=== PATIENT | female | born 1945 | race Caucasian/White ===

== ENCOUNTER 2016-08-12 23:52 | Inpatient (IN) | payer MEDICARE, BC ==
[~2016-08-12] VITALS: Ht 160 cm; Wt 58.3 kg
--- NOTE | 2016-08-13 00:07 | NUR ---
PATIENT BROUGHT IN BY RESCUE FOR C/O WEAKNESS X2 MONTHS AND DIZZNES X1 TODAY, SYNCOPE, PT IS ALERT, ORIENTED X 4, NO RESP DISTRESS NOTED OR REPORTED UPON ASSESSMENT... PT HAS PACEMAKER ON LEFT SIDE OF CHEST, PT HR CURRENTLY BETWEEN 35-45, MD AT BEDSIDE...
[2016-08-13 00:26] LABS: BASOPHILS % (AUTO) 0.6 % (0.0-2.0); EOSINOPHILS # (AUTO) 0.2 K/uL (0.0-0.7); EOSINOPHILS % (AUTO) 3.4 % (0.0-7.0); HEMATOCRIT 39.5 % (37-47); HEMOGLOBIN 13.4 G/DL (12.0-16.0); LYMPHOCYTES # (AUTO) 1.9 K/UL (0.8-4.8); MEAN CORPUSCULAR HEMOGLOBIN 30.6 UUG (27.0-31.0); MEAN CORPUSCULAR HGB CONC 34 g/dL (32.0-37.0); MEAN CORPUSCULAR VOLUME 90.7 FL (81.0-99.0); MONOCYTES % (AUTO) 16.2 % (0.0-11.0); NEUTROPHILS # (AUTO) 3.2 K/UL (1.8-8.9); NEUTROPHILS % (AUTO) 49.8 % (38.5-71.5); PLATELET COUNT (AUTO) 210 K/UL (150-450); RED BLOOD CELL COUNT(AUTO) 4.36 MIL/UL (4.2-5.4); WHITE BLOOD COUNT (AUTO) 6.3 K/UL (4.0-11.2)
[2016-08-13] MEDS ORDERED: LEVO100T PO (00:29)
[2016-08-13] MEDS ORDERED: METO50TA3 PO (00:29)
[2016-08-13] MEDS ORDERED: BENA40TA67 PO (00:29)
[2016-08-13] MEDS ORDERED: AMLO5TAB2 PO (00:29)
[2016-08-13] MEDS ORDERED: TRAV5DRO OP (00:29)
[2016-08-13] MEDS ORDERED: ROSU5TAB PO (00:29)
[2016-08-13] MEDS ORDERED: ASPI81TA31 PO (00:29)
[2016-08-13] MEDS ORDERED: HYDR12.55 PO (00:29)
[2016-08-13] MEDS ORDERED: DORZ10DR8 OP (00:29)
[2016-08-13 00:35] LABS: CARBON DIOXIDE 29 mmol/L (21-32); CHLORIDE 97 mmol/L (98-107); CREATININE 0.9 mg/dL (0.6-1.3); GLUCOSE 119 mg/dL (74-106); POTASSIUM 3.9 mmol/L (3.5-5.1); UREA NITROGEN, BLOOD 19 mg/dL (7-18)
[2016-08-13 00:39] LABS: EOSINOPHILS % (MANUAL) 4 % (0-8); LYMPHOCYTES % (MANUAL) 25 % (20-40); MONOCYTES % (MANUAL) 16 % (2-10); NEUTROPHILS % (MANUAL) 55 % (42-75)
[2016-08-13 00:46] LABS: ALANINE AMINOTRANSFERASE 32 U/L (14-59); ALKALINE PHOSPHATASE 120 U/L (50-136); ASPARTATE AMINOTRANSFERASE 37 U/L (15-37); BILIRUBIN,DIRECT 0.2 mg/dL (0.0-0.2); BILIRUBIN,TOTAL 0.6 mg/dL (0.2-1.0); TOTAL PROTEIN, SERUM 7.6 g/dL (6.4-8.2)
--- NOTE | 2016-08-13 01:15 | NUR ---
Call placed to [facility] speaking with Dr. Sutton.
[2016-08-13] MEDS ORDERED: MAGNESIUM HYDROXIDE 30 ML LIQUID UDC PO PRN (01:30)
[2016-08-13] MEDS ORDERED: HYDROCODONE/APAP 5-325MG TABLET PO PRN (01:30)
[2016-08-13] MEDS ORDERED: ONDANSETRON 4 MG/2 ML VIAL IV PRN (01:30)
[2016-08-13] MEDS ORDERED: Z GUARD REMEDY PASTE 57 GM TUBE TOP PRN (01:30)
--- NOTE | 2016-08-13 02:10 | NUR ---
ADMITTED THIS 70 Y.O. LADY WITH HISTORY OF 3X PACEMAKER INSERTION SINCE 2000.SHE IS HERE FORVALUATION AND FF UP OF PACEMAKER FAILURE.ACCOMPANIED BY ER NURSE VIA DONATO IN APPARENTLY FAIR CONDITION,ALERT AND ORIENTED X4, NO COMPLAINTS OF CHEST PAIN, DIZZINESS OR NAUSEA.ON TELEMETRY ,SHE IS PACING 63-64.VITALS TAKEN AND RECORDED.ADMISSION CARE RENDERED.DR. ENRIQUETA VALLECILLO NOTIFIED AND CLARIFIED ADMISSION ORDERS.HE WILL ARRANGED IN THE MORNING TO UNDERGO INTERROGATIONOF THE PACER BY THE [employer] REP ANDTHEN TO CONTACT HER COMMUNITY DEVELOPMENT WORKER TO CHECKHER PACERFOR APPROPRIATE TREATMENT. PT INFORMED RE;ABOVE.
--- NOTE | 2016-08-13 02:15 | NUR ---
E. PT PLACED ON TELE: PACING 60S, WITH EPISODE TO 3OS, PT ASYMPTOMATIC. MD ENRIQUETA VALLECILLO MADE AWARE, WITH CLARIFICATION OF ORDERS, SEE CHARGE NURSE NOTES. MADE COMFORTABLE. SAFETY NEEDS IMPLEMENTED. CALL LIGHT IN REACH. WILL CONTINUE CLOSE MONITORING.
[2016-08-13 02:25] VITALS: BP 134/66
--- NOTE | 2016-08-13 03:28 | NUR ---
Pt. admitted to Tele , under care of Dr. Sae Sutton, [place] List completed, pt alert, oriented x 4, no resp distress noted or reported upon assessment... pt transferred via gurney...
[2016-08-13 04:00] VITALS: BP 117/67
[2016-08-13 06:46] LABS: BASOPHILS % (AUTO) 0.5 % (0.0-2.0); EOSINOPHILS # (AUTO) 0.1 K/uL (0.0-0.7); EOSINOPHILS % (AUTO) 3.1 % (0.0-7.0); HEMATOCRIT 38.8 % (37-47); HEMOGLOBIN 13.3 G/DL (12.0-16.0); LYMPHOCYTES # (AUTO) 1.1 K/UL (0.8-4.8); LYMPHOCYTES % (AUTO) 24.5 % (20.5-51.5); MEAN CORPUSCULAR HEMOGLOBIN 31.8 UUG (27.0-31.0); MEAN CORPUSCULAR HGB CONC 34 g/dL (32.0-37.0); MEAN CORPUSCULAR VOLUME 92.5 FL (81.0-99.0); MONOCYTES # (AUTO) 0.6 K/UL (0.1-1.30); MONOCYTES % (AUTO) 14.1 % (0.0-11.0); NEUTROPHILS # (AUTO) 2.8 K/UL (1.8-8.9); NEUTROPHILS % (AUTO) 57.8 % (38.5-71.5); PLATELET COUNT (AUTO) 206 K/UL (150-450); WHITE BLOOD COUNT (AUTO) 4.6 K/UL (4.0-11.2)
--- NOTE | 2016-08-13 06:56 | NUR ---
END OF SHIFT NOTE: PT SLEPT INTERMITTENTLY REMAINDER OF SHIFT. NO ACUTE DISTRESS NOTED. ON TELE: PACING, HR-61. NO C/O PAIN OR DIZZINESS THIS MORNING. VS STABLE. BREATHING IS EVEN AND NONLABORED, ON ROOM AIR, SAT WNL. IV INTACT AND PATENT. DVT PUMPS ON. ALL NEEDS MET. CALL LIGHT IN REACH. SAFETY AND COMFORT MEASURES PROVIDED.
[2016-08-13 07:09] LABS: CARBON DIOXIDE 27 mmol/L (21-32); CHLORIDE 100 mmol/L (98-107); CREATININE 0.8 mg/dL (0.6-1.3); GLUCOSE 108 mg/dL (74-106); MAGNESIUM 1.9 mg/dL (1.8-2.4); PHOSPHOROUS 3.8 mg/dL (2.5-4.9); POTASSIUM 3.3 mmol/L (3.5-5.1); UREA NITROGEN, BLOOD 15 mg/dL (7-18)
--- NOTE | 2016-08-13 08:00 | NUR ---
IN BED AWAKE ALERT AND ORIENTED X3, CONTINUE CLOSE MONITORING PACED RYTHM NO SIGNS OF PAIN OR SOB
[2016-08-13] MEDS: PANTOPRAZOLE SODIUM 40 MG TABLET.DR PO SCH (08:17)
[2016-08-13] MEDS: AMLODIPINE 5 MG TABLET PO SCH (08:17)
[2016-08-13] MEDS: BENAZEPRIL HCL 20 MG TABLET PO SCH (08:18)
[2016-08-13] MEDS: HYDROCHLOROTHIAZIDE 12.5 MG CAPSULE PO SCH (08:18)
[2016-08-13] MEDS: LEVOTHYROXINE SODIUM 100 MCG TABLET PO SCH (08:18)
[2016-08-13] MEDS: ASPIRIN 81 MG TAB.CHEW PO SCH (08:18)
[2016-08-13] MEDS ORDERED: Medication Not On Formulary EA (Hydrochlorothiazide 12.5 MG) PO SCH (09:00)
[2016-08-13] MEDS ORDERED: POTASSIUM CHLORIDE 20 MEQ TAB.PRT.SR PO ONE (10:30)
--- NOTE | 2016-08-13 10:30 | NUR ---
SEEN BY DR TRUJILLO DISCUSSED PLAN OF CARE, SEE NOTES.
[2016-08-13] MEDS: DORZOLAMIDE 2% OPHT DROP 10 ML BOTTLE EACHEYE SCH ×2 (10:59→17:18)
[2016-08-13 12:12] VITALS: BP 119/62
--- NOTE | 2016-08-13 13:40 | NUR ---
LUKE PAIN OR SOB, RESTING COMFORTABLY IN BED PACING ON MONITOR
--- NOTE | 2016-08-13 13:45 | NUR ---
SEEN BY DR SCHROEDER SEE NOTES
--- NOTE | 2016-08-13 14:45 | NUR ---
PACEMAKER CHECKED DONE BY TECH. CONSENT SIGNED FOR PACEMAKER IN AM, NPO AFTER MIDNIGHT ADVICE
[2016-08-13 16:11] VITALS: BP 102/60
[2016-08-13 17:29] LABS: *BILIRUBIN,URIN NEGATIVE (NEGATIVE); *BLOOD, URINE 2+ (NEGATIVE); *COLOR,URINE YELLOW (YELLOW); *KETONES,URINE NEGATIVE (NEGATIVE); *PROTEIN,URINE NEGATIVE (NEGATIVE); *UROBILINOGEN,URINE 0.2 E.U./dl (NORMAL); LEUKOCYTE ESTERASE ,URINE NEGATIVE (NEGATIVE); NITRITE, URINE NEGATIVE (NEGATIVE); UGLUCOSE NEGATIVE (NEGATIVE)
[2016-08-13 17:47] LABS: *CLARITY,URINE SLIGHTLY HAZY (CLEAR)
[2016-08-13 17:48] LABS: RBC,URINE 20-50 /HPF (0-3); WBC,URINE 0-3 /HPF (0-3)
--- NOTE | 2016-08-13 18:43 | NUR ---
PACING ON MONITOR, LUKE PAIN OR SOB
--- NOTE | 2016-08-13 19:30 | NUR ---
RESTING IN BED COMFORTABLY. NO ACUTE DISTRESS NOTED. ALERT AND ORIENTED, ABLE TO MAKE NEEDS KNOWN. AWARE OF PROCEDURE TOMORROW. INSTRUCTED TO CALL WHEN IN NEED TO USE THE RESTROOM. SAFETY INITIATED. CALL LIGHT WITHIN REACH. WILL MONITOR
[2016-08-13 20:00] VITALS: BP 104/58
[2016-08-13] MEDS: ATORVASTATIN 10 MG TABLET PO SCH (20:15)
[2016-08-13] MEDS: LATANOPROST OPHT DROP 2.5 ML BOTTLE EACHEYE SCH (20:15)
[2016-08-13] MEDS ORDERED: Medication Not On Formulary EA (Rosuvastatin Calcium (Crestor) 5 MG) PO SCH (21:00)
[2016-08-13] MEDS ORDERED: Medication Not On Formulary EA (Travoprost (Travatan Z) 5 ML) OP SCH (21:00)
[2016-08-14] VITALS (9 sets, daily range): BP systolic 102–124; BP diastolic 52–69
--- NOTE | 2016-08-14 06:44 | NUR ---
PATIENT SLEPT COMFORTABLY THROUGHOUT THE NIGHT. NO ACUTE DISTRESS NOTED. NPO MAINTAINED. PRE OP CHECKLIST INITIATED. ALL MEDS GIVEN ORDERED. ALL NEEDS MET. CALL LIGHT WITHIN REACH. TELE A-PACING 63.
[2016-08-14] MEDS: PANTOPRAZOLE SODIUM 40 MG TABLET.DR PO SCH (06:49)
[2016-08-14] MEDS: LEVOTHYROXINE SODIUM 100 MCG TABLET PO SCH (06:49)
[2016-08-14] MEDS ORDERED: BACITRACIN 50000 UNIT MC ONE ×2 (07:30)
[2016-08-14] MEDS ORDERED: SODIUM CHLORIDE MC ONE ×2 (07:30)
[2016-08-14 07:51] LABS: ALANINE AMINOTRANSFERASE 31 U/L (14-59); ALKALINE PHOSPHATASE 105 U/L (50-136); ASPARTATE AMINOTRANSFERASE 28 U/L (15-37); BILIRUBIN,TOTAL 0.7 mg/dL (0.2-1.0); CARBON DIOXIDE 30 mmol/L (21-32); CHLORIDE 102 mmol/L (98-107); CHOLESTEROL 152 mg/dL (<200); CREATININE 0.8 mg/dL (0.6-1.3); GLUCOSE 92 mg/dL (74-106); HDL CHOLESTEROL 89 mg/dL (40-60); MAGNESIUM 1.8 mg/dL (1.8-2.4); PHOSPHOROUS 3.3 mg/dL (2.5-4.9); POTASSIUM 3.3 mmol/L (3.5-5.1); TOTAL PROTEIN, SERUM 6.9 g/dL (6.4-8.2); TRIGLYCERIDES 37 MG/DL (30-150); UREA NITROGEN, BLOOD 12 mg/dL (7-18)
[2016-08-14] MEDS ORDERED: LIDOCAINE HCL 1% 20 ML VIAL ONE (07:55)
[2016-08-14] MEDS ORDERED: NS ONE (07:55)
[2016-08-14] MEDS ORDERED: HEPARIN ONE (07:55)
[2016-08-14] MEDS ORDERED: IOHEXOL 300MG/ML 50 ML VIAL ONE (07:55)
--- NOTE | 2016-08-14 07:56 | NUR ---
Awake, alert, oriented x 4. NPO maintained. Getting ready for surgery, pacemaker insertion.
[2016-08-14] MEDS ORDERED: BACITRACIN 50,000 UNITS VIAL ONE (08:04)
--- NOTE | 2016-08-14 08:06 | NUR ---
To OR by bed, tele removed
[2016-08-14 08:07] LABS: THYROID STIMULATING HORMONE 0.443 mIU/mL (0.358-3.740)
[2016-08-14] MEDS ORDERED: MIDAZOLAM HCL 2 MG/2 ML VIAL IV ONE (08:26)
[2016-08-14 08:44] LABS: BASOPHILS % (AUTO) 0.1 % (0.0-2.0); EOSINOPHILS # (AUTO) 0.2 K/uL (0.0-0.7); EOSINOPHILS % (AUTO) 3.9 % (0.0-7.0); HEMATOCRIT 39.9 % (37-47); HEMOGLOBIN 13.3 G/DL (12.0-16.0); LYMPHOCYTES # (AUTO) 1.1 K/UL (0.8-4.8); LYMPHOCYTES % (AUTO) 21.8 % (20.5-51.5); MEAN CORPUSCULAR HEMOGLOBIN 30.8 UUG (27.0-31.0); MEAN CORPUSCULAR HGB CONC 33 g/dL (32.0-37.0); MEAN CORPUSCULAR VOLUME 92.2 FL (81.0-99.0); MONOCYTES # (AUTO) 0.8 K/UL (0.1-1.30); MONOCYTES % (AUTO) 16.7 % (0.0-11.0); NEUTROPHILS # (AUTO) 2.9 K/UL (1.8-8.9); NEUTROPHILS % (AUTO) 57.5 % (38.5-71.5); PLATELET COUNT (AUTO) 189 K/UL (150-450); RED BLOOD CELL COUNT(AUTO) 4.33 MIL/UL (4.2-5.4)
[2016-08-14] MEDS: BENAZEPRIL HCL 20 MG TABLET PO SCH (09:00)
[2016-08-14] MEDS: HYDROCHLOROTHIAZIDE 12.5 MG CAPSULE PO SCH (09:00)
[2016-08-14] MEDS: AMLODIPINE 5 MG TABLET PO SCH (09:00)
[2016-08-14] MEDS: DORZOLAMIDE 2% OPHT DROP 10 ML BOTTLE EACHEYE SCH ×2 (09:00→17:23)
[2016-08-14 09:15] LABS: LYMPHOCYTES % (MANUAL) 23 % (20-40); NEUTROPHILS % (MANUAL) 58 % (42-75)
[2016-08-14 09:16] LABS: EOSINOPHILS % (MANUAL) 4 % (0-8); MONOCYTES % (MANUAL) 15 % (2-10)
--- NOTE | 2016-08-14 11:40 | NUR ---
Received from Recovery s/p Pacemaker placement, right chest by bed. Awake, alert, oriented x4 . Vital signs taken and recorded. Placed on tele, afib/pacing 70
[2016-08-14] MEDS ORDERED: SEVOFLURANE 250 ML BOTTLE IH ONE (12:03)
[2016-08-14] MEDS ORDERED: IV NORMAL SALINE 1000 ML BAG IV ONE (12:03)
[2016-08-14] MEDS ORDERED: PROPOFOL 200 MG/20 ML BOTTLE IV ONE (12:03)
[2016-08-14] MEDS ORDERED: CEFAZOLIN 1 G VIAL MC ONE (12:03)
[2016-08-14] MEDS ORDERED: ONDANSETRON 4 MG/2 ML VIAL IV ONE (12:03)
[2016-08-14] MEDS ORDERED: DEXAMETHASONE SOD PHOSPHATE 4 MG INJ IV ONE (12:03)
[2016-08-14] MEDS ORDERED: IV NORMAL SALINE 500 ML BAG IV ONE (12:03)
[2016-08-14] MEDS: ASPIRIN 81 MG TAB.CHEW PO SCH (12:47)
[2016-08-14] MEDS: METOPROLOL TARTRATE 50 MG TABLET PO SCH ×2 (12:51→20:42)
[2016-08-14] MEDS: POTASSIUM CHLORIDE 50 ML IV SCH ×2 (12:51→15:41)
--- NOTE | 2016-08-14 13:00 | NUR ---
Lunch served. Medication resumed, BP medications not given for low BP except for metoprolol. IV Potassium started.
[2016-08-14] MEDS: ACETAMINOPHEN 325 MG TABLET PO PRN ×2 (13:04→23:34)
[2016-08-14] MEDS: CEFAZOLIN 1 G in PREMIXED 1 EACH IV SCH ×2 (15:11→21:12)
--- NOTE | 2016-08-14 15:41 | NUR ---
IV site burning from Potassium IV, 2nd bag infusing at slow rate, with IVF infusion
--- NOTE | 2016-08-14 17:44 | NUR ---
Kept comfortable, not in distress
--- NOTE | 2016-08-14 19:30 | NUR ---
RECEIVED REPORT FROM AM NURSE. PATIENT WAS IN BED SITTING COMFORTABLY. PATIENT IS ALERT AND ORIENTED X'S 4. ABLE TO MAKE NEEDS KNOWN. TELE A-PACING AT 70. NO ACUTE DISTRESS NOTED. SAFETY INITIATED. CALL LIGHT WITHIN REACH.
[2016-08-14] MEDS: LATANOPROST OPHT DROP 2.5 ML BOTTLE EACHEYE SCH (20:41)
[2016-08-14] MEDS: ATORVASTATIN 10 MG TABLET PO SCH (20:42)
[2016-08-15] VITALS: BP 104/58
[2016-08-15 04:00] VITALS: BP 108/56
[2016-08-15] MEDS: PANTOPRAZOLE SODIUM 40 MG TABLET.DR PO SCH (06:07)
[2016-08-15] MEDS: LEVOTHYROXINE SODIUM 100 MCG TABLET PO SCH (06:07)
--- NOTE | 2016-08-15 06:46 | NUR ---
PATIENT SLEPT INTERMITTENTLY THROUGHOUT THE NIGHT. NO ACUTE DISTRESS NOTED. TELE PACING AT 70. ALL MEDS GIVEN ORDERED. ALL NEEDS MET. CALL LIGHT WITHIN REACH. SAFETY PROVIDED THROUGHOUT SHIFT.
[2016-08-15] MEDS: DORZOLAMIDE 2% OPHT DROP 10 ML BOTTLE EACHEYE SCH ×2 (08:42→16:02)
[2016-08-15] MEDS: METOPROLOL TARTRATE 50 MG TABLET PO SCH ×2 (08:42→20:30)
[2016-08-15] MEDS: ASPIRIN 81 MG TAB.CHEW PO SCH (08:42)
[2016-08-15] MEDS: BENAZEPRIL HCL 20 MG TABLET PO SCH (08:43)
[2016-08-15] MEDS: AMLODIPINE 5 MG TABLET PO SCH (08:47)
[2016-08-15] MEDS: HYDROCHLOROTHIAZIDE 12.5 MG CAPSULE PO SCH (08:47)
[2016-08-15 12:07] VITALS: BP 120/66
[2016-08-15 14:00] LABS: BASOPHILS % (AUTO) 0.4 % (0.0-2.0); EOSINOPHILS # (AUTO) 0.1 K/uL (0.0-0.7); EOSINOPHILS % (AUTO) 0.8 % (0.0-7.0); HEMATOCRIT 38.6 % (37-47); HEMOGLOBIN 12.8 G/DL (12.0-16.0); LYMPHOCYTES % (AUTO) 8.6 % (20.5-51.5); MEAN CORPUSCULAR HEMOGLOBIN 30.9 UUG (27.0-31.0); MEAN CORPUSCULAR HGB CONC 33 g/dL (32.0-37.0); MEAN CORPUSCULAR VOLUME 93.1 FL (81.0-99.0); MONOCYTES # (AUTO) 1.1 K/UL (0.1-1.30); MONOCYTES % (AUTO) 9.1 % (0.0-11.0); NEUTROPHILS # (AUTO) 9.9 K/UL (1.8-8.9); NEUTROPHILS % (AUTO) 81.1 % (38.5-71.5); PLATELET COUNT (AUTO) 202 K/UL (150-450); RED BLOOD CELL COUNT(AUTO) 4.15 MIL/UL (4.2-5.4); WHITE BLOOD COUNT (AUTO) 12.1 K/UL (4.0-11.2)
--- NOTE | 2016-08-15 14:00 | NUR ---
The patient's discharge plan is to return back home [[address], [place] [address]] once medically cleared. She will follow-up with her PCP and legal billing coordinator. Provided her with a [facility] booklet in her folder and she opted for [facility] [ ; ] to provide services at home.
[2016-08-15 14:04] LABS: CARBON DIOXIDE 29 mmol/L (21-32); CHLORIDE 98 mmol/L (98-107); CREATININE 1.1 mg/dL (0.6-1.3); GLUCOSE 113 mg/dL (74-106); POTASSIUM 3.7 mmol/L (3.5-5.1); UREA NITROGEN, BLOOD 15 mg/dL (7-18)
[2016-08-15 14:10] LABS: ALANINE AMINOTRANSFERASE 22 U/L (14-59); ALKALINE PHOSPHATASE 107 U/L (50-136); ASPARTATE AMINOTRANSFERASE 29 U/L (15-37); BILIRUBIN,TOTAL 0.6 mg/dL (0.2-1.0); MAGNESIUM 1.8 mg/dL (1.8-2.4); TOTAL PROTEIN, SERUM 6.8 g/dL (6.4-8.2)
[2016-08-15] MEDS ORDERED: CEFTRIAXONE 1 G in IV DEXTROSE 5% 50 ML IV SCH (15:00)
[2016-08-15 15:02] LABS: BAND % (MANUAL) 2 % (0-10); LYMPHOCYTES % (MANUAL) 12 % (20-40); MONOCYTES % (MANUAL) 10 % (2-10); NEUTROPHILS % (MANUAL) 76 % (42-75)
[2016-08-15 16:00] VITALS: BP 108/67
--- NOTE | 2016-08-15 19:33 | NUR ---
PT IS LAYING IN BED COMFORTABLY. NO PAIN NOTED. NO S/S OF RESPIRATORY DISTRESS NOTED. IV INTACT/PATENT. ALL SAFETY NEEDS ARE MET.
[2016-08-15 20:00] VITALS: BP 115/69
--- NOTE | 2016-08-15 20:00 | NUR ---
RECEIVED PATIENT AWAKE IN BED. A/O X4. DENIES PAIN OR DISCOMFORT. REDNESS NOTED TO RIGHT UPPER CHEST AROUND PACEMAKER SITE. VSS. CALL LIGHT IN REACH. ALL NEEDS ATTENDED. WILL CONTINUE TO MONITOR.
[2016-08-15] MEDS: ATORVASTATIN 10 MG TABLET PO SCH (20:30)
[2016-08-15] MEDS: LATANOPROST OPHT DROP 2.5 ML BOTTLE EACHEYE SCH (20:30)
[2016-08-15] MEDS: ACETAMINOPHEN 325 MG TABLET PO PRN (21:22)
[2016-08-16 05:31] VITALS: BP 132/74
[2016-08-16] MEDS: PANTOPRAZOLE SODIUM 40 MG TABLET.DR PO SCH (06:21)
[2016-08-16] MEDS: LEVOTHYROXINE SODIUM 100 MCG TABLET PO SCH (06:21)
--- NOTE | 2016-08-16 06:52 | NUR ---
PATIENT AWAKE IN BED. C/O CONSTIPATION. REQUESTING PRUNE JUICE. SLEPT WELL. DENIES ANY PAIN OR DISCOMFORT. VSS. CALL LIGHT IN REACH. ALL NEEDS ATTENDED.WILL CONTINUE TO MONITOR.
[2016-08-16 07:15] LABS: ALANINE AMINOTRANSFERASE 20 U/L (14-59); ALKALINE PHOSPHATASE 105 U/L (50-136); ASPARTATE AMINOTRANSFERASE 27 U/L (15-37); BASOPHILS % (AUTO) 0.6 % (0.0-2.0); BILIRUBIN,TOTAL 0.7 mg/dL (0.2-1.0); CARBON DIOXIDE 28 mmol/L (21-32); CHLORIDE 106 mmol/L (98-107); CREATININE 0.8 mg/dL (0.6-1.3); EOSINOPHILS # (AUTO) 0.2 K/uL (0.0-0.7); EOSINOPHILS % (AUTO) 2.4 % (0.0-7.0); GLUCOSE 95 mg/dL (74-106); HEMATOCRIT 36.8 % (37-47); HEMOGLOBIN 12.3 G/DL (12.0-16.0); LYMPHOCYTES # (AUTO) 1.1 K/UL (0.8-4.8); LYMPHOCYTES % (AUTO) 14.9 % (20.5-51.5); MAGNESIUM 1.9 mg/dL (1.8-2.4); MEAN CORPUSCULAR HEMOGLOBIN 30.8 UUG (27.0-31.0); MEAN CORPUSCULAR HGB CONC 34 g/dL (32.0-37.0); MEAN CORPUSCULAR VOLUME 91.9 FL (81.0-99.0); MONOCYTES # (AUTO) 0.9 K/UL (0.1-1.30); MONOCYTES % (AUTO) 11.5 % (0.0-11.0); NEUTROPHILS # (AUTO) 5.4 K/UL (1.8-8.9); NEUTROPHILS % (AUTO) 70.6 % (38.5-71.5); PHOSPHOROUS 3.5 mg/dL (2.5-4.9); PLATELET COUNT (AUTO) 179 K/UL (150-450); POTASSIUM 3.5 mmol/L (3.5-5.1); RED BLOOD CELL COUNT(AUTO) 4.01 MIL/UL (4.2-5.4); TOTAL PROTEIN, SERUM 6.6 g/dL (6.4-8.2); UREA NITROGEN, BLOOD 15 mg/dL (7-18)
[2016-08-16 07:18] LABS: WHITE BLOOD COUNT (AUTO) 7.6 K/UL (4.0-11.2)
[2016-08-16] MEDS: HYDROCHLOROTHIAZIDE 12.5 MG CAPSULE PO SCH (09:00)
[2016-08-16] MEDS: AMLODIPINE 5 MG TABLET PO SCH (09:00)
[2016-08-16] MEDS: METOPROLOL TARTRATE 50 MG TABLET PO SCH (09:37)
[2016-08-16] MEDS: BENAZEPRIL HCL 20 MG TABLET PO SCH (09:37)
[2016-08-16] MEDS: ASPIRIN 81 MG TAB.CHEW PO SCH (09:37)
[2016-08-16] MEDS: DORZOLAMIDE 2% OPHT DROP 10 ML BOTTLE EACHEYE SCH (09:39)
[2016-08-16] MEDS ORDERED: CEPH500C2 PO (10:44)
[2016-08-16] MEDS ORDERED: ACET325T53 PO (10:44)
[2016-08-16 11:43] VITALS: BP 104/70
[2016-08-16] MEDS ORDERED: CEPHALEXIN MONOHYDRATE 500 MG CAPSULE PO SCH (14:00)
--- NOTE | 2016-08-16 14:00 | NUR ---
DISCHARGE NOTE: PT IS READY O BE DISCHARGED. NO S/S OF RESPIRATORY DISTRESS NOTED. NO CHEST PAIN/PALPITATIONS REPORTED. NO PAIN NOTED. PIT IS WHEELED DOWN TO THE LOBBY, NO DIZZINESS REPORTED. PT IS ACCOMPANIED BY HER SON, PRESCRIPTION IS GIVEN TO THE PT. EDUCATION IS PROVIDED.
== END 2016-08-16 13:50 | disposition home health service (06) | DRG 243 ==
LOC: ER 23:58 → TELE 08-13 01:29 → MED 08-15 12:54
PROVIDERS: ADMIT Family Medicine; ATTEND Nurse Practitioner Acute Care
PROC: 02HK3JZ Insertion of Pacemaker Lead into Right Ventricle, Percutaneous Approach (ICD-10-PCS; 2016-08-14)
PROC: 5A2204Z Restoration of Cardiac Rhythm, Single (ICD-10-PCS; 2016-08-14)
PROC: 0JH606Z Insertion of Pacemaker, Dual Chamber into Chest Subcutaneous Tissue and Fascia, Open Approach (ICD-10-PCS; principal; 2016-08-14 08:19)
DX: T82.119A Breakdown (mechanical) of unspecified cardiac electronic device, initial encounter (principal); I47.1 Supraventricular tachycardia; T82.190A Other mechanical complication of cardiac electrode, initial encounter; I44.2 Atrioventricular block, complete; E87.1 Hypo-osmolality and hyponatremia; N39.0 Urinary tract infection, site not specified; Y92.009 Unspecified place in unspecified non-institutional (private) residence as the place of occurrence of the external cause; E03.9 Hypothyroidism, unspecified; E78.5 Hyperlipidemia, unspecified; Y71.2 Prosthetic and other implants, materials and accessory cardiovascular devices associated with adverse incidents; I10 Essential (primary) hypertension; I48.0 Paroxysmal atrial fibrillation; E87.6 Hypokalemia; H40.9 Unspecified glaucoma; Z90.49 Acquired absence of other specified parts of digestive tract; F41.9 Anxiety disorder, unspecified; Z79.899 Other long term (current) drug therapy; Z79.82 Long term (current) use of aspirin; K59.00 Constipation, unspecified; I70.0 Atherosclerosis of aorta; R00.1 Bradycardia, unspecified; M19.90 Unspecified osteoarthritis, unspecified site; B96.89 Other specified bacterial agents as the cause of diseases classified elsewhere; I08.1 Rheumatic disorders of both mitral and tricuspid valves; D72.829 Elevated white blood cell count, unspecified
CPT/HCPCS: 36415; 70030-TC; 71010; 76000; 83735; 84100; 84443; 85025; 85730; 87086; 93005; 93307; 97161; A4649; A4663; C1769; J0690; J0696; J1100; J1644; J2250; J2405; J3480; J3490; J7030; J7040; J7050; J7060; Q9967